=== PATIENT | female | born 1990 | race Caucasian/White ===

== ENCOUNTER 2019-02-01 13:26 | Emergency (ER) | payer BC, SELFPAY ==
[2019-02-01] VITALS (7 sets, daily range): BP systolic 114–120; BP diastolic 77–80; PULSE 112–118; RESP 15–30; TEMP 36.7–36.9; O2SAT 94–97
--- NOTE | 2019-02-01 13:51 | RAD_ITS ---
STUDY: X-RAY CHEST REASON FOR EXAM: Female, 28 years old. Cough, shortness of breath and fever. TECHNIQUE: PA and lateral views of the chest. COMPARISON: None. FINDINGS: EKG electrodes are seen. The lungs are clear and expanded. There is no demonstrated pleural abnormality. Normal size heart. Normal mediastinum and meg. Normal visualized pulmonary arteries. Normal visualized aortic arch and descending thoracic aorta. Normal visualized thoracic spine. Normal visualized ribs, clavicles, and shoulders. There is no demonstrated abnormality of the visualized soft tissue structures of the upper abdomen. RAD/Chest PA and Lateral IMPRESSION: Normal x-ray examination of the chest. Electronically Signed: Kaleb Meza, at 14:39 EST , Service support ,
--- NOTE | 2019-02-01 13:51 | EKG12_ITS ---
Test Reason : SOB Blood Pressure : / mmHG Vent. Rate : 111 BPM Atrial Rate : 111 BPM P-R Int : 160 ms QRS Dur : 076 ms QT Int : 336 ms P-R-T Axes : 056 002 013 degrees QTc Int : 456 ms Sinus tachycardia Nonspecific T wave abnormality Abnormal ECG Confirmed by MIKAELA HADDAD ([id number]), social media editor FREDY BROCK ([id number] on 02/05/2019 1:35:34 PM Referred By: RAPHAEL Confirmed By:MIKAELA HADDAD
[2019-02-01 14:07] LABS: Absolute Lymphocyte Count 1.14 X10^3/ul (0.83-4.51); Absolute Neutrophil Count 10.3 X10^3/uL (2.0-7.7); Basophil# 0.04 X10^3/uL; Basophil% 0.3 % (0-1); Eosinophil# 0.15 X10^3/uL; Eosinophils% 1.2 % (0-5); Hematocrit 43.6 % (37-47); Hemoglobin 14.4 g/dl (12.0-15.0); Lymphocyte # 1.14 X10^3/ul (4.0); Lymphocyte % 9.2 % (19-41); Mean Corpuscular Hgb 31.7 pg (27.0-32.0); Mean Platelet Vol. 9.9 fl (6.2-12.0); Monocyte# 0.79 X10^3/uL; Monocyte% 6.3 % (0-10); Neutrophil % 82.8 % (47-70); Platelet Count 287 K/mm3 (150-450); RBC Distribution Width CV 11.9 % (11.6-14.6); RBC Distribution Width SD 40.6 fl (35.1-43.9); Red Blood Count 4.54 M/mm3 (4.2-5.4); White Blood Count 12.5 K/mm3 (4.4-11.0)
[2019-02-01 14:08] LABS: POSITIVE COUNT NO; POSITIVE DIFFERENTIAL NO; POSITIVE MORPHOLOGY NO
[2019-02-01 14:15] LABS: Anion Gap 8 (5-15); BUN 9 mg/dL (7-18); BUN/Creat Ratio 11.3 RATIO (10-20); Chloride 108 mmol/L (98-107); EST Glomerular Filtration Rate 91 mL/min (>60); Est Glom Filt Rate - Afr Amer 111 mL/min (>60); Estimated Creatinine Clearance 91.21 ml/min; Glucose 94 mg/dL (74-106); Potassium 3.6 mmol/L (3.5-5.1); Sodium Level 138 mmol/L (136-145)
[2019-02-01] MEDS: Ipratropium/Albuterol Sulfate 3 ML AMPUL.NEB INHALATION (14:19)
[2019-02-01] MEDS: Albuterol 2.5 MG/3 ML VIAL.NEB. INHALATION (14:19)
--- NOTE | 2019-02-01 15:39 | ED.VISSUMM ---
- ER Visit Summary Date of Service: 02/01/19 Chief Complaint: Short of breath History of Present Illness: The patient is a 28 F C room feeling short of breath. [facility] Patient states on Friday she developed a sore throat and started with a cough on Friday. Friday she was worsening and developing dyspnea and dyspnea on exertion. She has some phlegm production she went to the [facility] clinic today was referred to the emergency department. They stated that her oxygen levels around 89%. She does note some sputum production. She feels her heart racing. She does not know her last menstrual period because she has a Nexplanon implant. T-max of 100. Denies any PE risk factors. Physical Examination: Afebrile vital signs showed tachypnea and tachycardia 95% at rest. Gen: Well-nourished well-developed Head: Normocephalic atraumatic Eyes: Perrl EOMI ENT: TMs clear no rhinorrhea moist mucous membranes Neck: Supple no lymphadenopathy no JVD nontender CVS: Regular rate tachycardic rhythm no murmurs normal S1-S2 Respiratory: Decreased breath sounds bilaterally. Inspiratory and expiratory wheezing. Tachypnea. Chest nontender Abdomen: Soft nontender nondistended normal bowel sounds no masses Back: Nontender Extremity: Nontender no edema Skin: Normal color no rash Neuro: alert orientated ?3 CN II-XII intact normal strength sensation Psych: Normal affect normal mood Test Results: White count 12.5. Chest x-ray shows no infiltrate. EKG sinus at a rate of 111. Influenza negative. Emergency Department Course and Treatment: DuoNeb and albuterol aerosols. Repeat examination she has increased aeration still with some wheezing. She is tachypneic with ambulation but is not hypoxic. Peak flow was obtained and was 250. We talked about admission tonight for continued aerosols versus home treatment with albuterol and prednisone. Patient would like to try to go home. Patient has several risk factors for bounce back to the emergency department. The patient is motivated. I will write for prednisone and for albuterol MDI with spacer. Impression: 1. Acute bronchitis with bronchospasm This note was generated with [employer] dictation software. It may contain incorrect words, spelling, and punctuation that were not noted in review of the chart prior to signing ED Disposition - Plan for ED Patient: Disposition: Home or Assisted Living Instructions: ED Wheezing Prescriptions: Albuterol Inhaler [Ventolin Hfa] 2 puff INHALATION Q4H PRN PRN #1 inhaler PRN Reason: Wheezing Prednisone [Deltasone] 40 mg PO DAILY #10 tab Additional Instructions: To the emergency department if you are worsening or have concerns.
--- NOTE | 2019-02-01 15:43 | ED.DCSUM_ITS ---
- ER Visit Summary Date of Service: 02/01/19 Chief Complaint: Short of breath History of Present Illness: The patient is a 28 F C room feeling short of breath. [facility] Patient states on Friday she developed a sore throat and started with a cough on Friday. Friday she was worsening and developing dyspnea and dyspnea on exertion. She has some phlegm production she went to the [facility] today was referred to the emergency department. They stated that her oxygen levels around 89%. She does note some sputum production. She feels her heart racing. She does not know her last menstrual period because she has a Nexplanon implant. T-max of 100. Denies any PE risk factors. Physical Examination: Afebrile vital signs showed tachypnea and tachycardia 95% at rest. Gen: Well-nourished well-developed Head: Normocephalic atraumatic Eyes: Perrl EOMI ENT: TMs clear no rhinorrhea moist mucous membranes Neck: Supple no lymphadenopathy no JVD nontender CVS: Regular rate tachycardic rhythm no murmurs normal S1-S2 Respiratory: Decreased breath sounds bilaterally. Inspiratory and expiratory wheezing. Tachypnea. Chest nontender Abdomen: Soft nontender nondistended normal bowel sounds no masses Back: Nontender Extremity: Nontender no edema Skin: Normal color no rash Neuro: alert orientated ?3 CN II-XII intact normal strength sensation Psych: Normal affect normal mood Test Results: White count 12.5. Chest x-ray shows no infiltrate. EKG sinus at a rate of 111. Influenza negative. Emergency Department Course and Treatment: DuoNeb and albuterol aerosols. Repeat examination she has increased aeration still with some wheezing. She is tachypneic with ambulation but is not hypoxic. Peak flow was obtained and was 250. We talked about admission tonight for continued aerosols versus home treatment with albuterol and prednisone. Patient would like to try to go home. Patient has several risk factors for bounce back to the emergency department. The patient is motivated. I will write for prednisone and for albuterol MDI with spacer. Impression: 1. Acute bronchitis with bronchospasm This note was generated with [employer] dictation software. It may contain incorrect words, spelling, and punctuation that were not noted in review of the chart prior to signing ED Disposition - Plan for ED Patient: Disposition: Home or Assisted Living Instructions: ED Wheezing Prescriptions: Albuterol Inhaler [Ventolin Hfa] 2 puff INHALATION Q4H PRN PRN #1 inhaler PRN Reason: Wheezing Prednisone [Deltasone] 40 mg PO DAILY #10 tab Additional Instructions: To the emergency department if you are worsening or have concerns.
[2019-02-01] MEDS: predniSONE 20 MG Tablet 40 MG PO (16:08)
== END 2019-02-01 16:11 | disposition home or self-care (01) ==
PROVIDERS: Emergency Provider Emergency Medicine; Family Provider Family Medicine; PCP Family Medicine
DX: J20.9 Acute bronchitis, unspecified (principal)
CPT/HCPCS: 71046; 80048; 85025; 87804; 93005; 94640; 99285; J7030